=== PATIENT | male | born 1990 | race American Indian/Alaskan Native ===

== ENCOUNTER 2018-02-07 21:33 | Emergency (ER) | payer SELFPAY ==
[2018-02-07 22:07] VITALS: TEMP 98.2
--- NOTE | 2018-02-08 01:24 | ED PDOC ---
Upper Extremity Pain/Injury Chief Complaint (Provider): Right Finger Pain History Per: Patient History/Exam Limitations: no limitations Onset/Duration Of Symptoms: Days (x3) Current Symptoms Are (Timing): Still Present Additional Complaint(s): 27 year old male presents to ED with complaints of right 2nd digit pain x3 days and has no past medical history. Notes slamming his finger in a metal fridge x1 week ago and noticed increased swelling and pain to the area. PCP: None <Mehul Xie - Last Filed: 02/08/18 01:50> <Brittany Su - Last Filed: 02/08/18 02:10> Time Seen by Provider: 02/08/18 00:11 Chief Complaint (Nursing): Finger,Hand,&Wrist Past Medical History Reviewed: Historical Data, Nursing Documentation, Vital Signs Vital Signs: Last Vital Signs Temp 98.2 F 02/07/18 22:04 Pulse 71 02/07/18 22:04 Resp 02/07/18 22:04 BP 133/85 02/07/18 22:04 Pulse Ox 98 02/07/18 22:04 - Medical History PMH: No Chronic Diseases - Family History Family History: States: Unknown Family Hx <Mehul Xie - Last Filed: 02/08/18 01:50> Vital Signs: Last Vital Signs Temp 98.2 F 02/07/18 22:04 Pulse 71 02/07/18 22:04 Resp 02/07/18 22:04 BP 133/85 02/07/18 22:04 Pulse Ox 98 02/08/18 01:50 <Brittany Su - Last Filed: 02/08/18 02:10> - Allergies Allergies/Adverse Reactions: Allergies Allergy/AdvReac Type Severity Reaction Status Date / Time No Known Allergies Allergy Verified 02/07/18 22:07 Review of Systems ROS Statement: Except As Marked, All Systems Reviewed And Found Negative Musculoskeletal: Positive for: Hand Pain (Right 2nd digit pain and swelling) <Mehul Xie - Last Filed: 02/08/18 01:50> Physical Exam - Reviewed Nursing Documentation Reviewed: Yes Vital Signs Reviewed: Yes - Physical Exam Appears: Positive for: Non-toxic, No Acute Distress Extremity: Positive for: Normal ROM, Swelling (Swelling to distal tip of right 2nd digit. No skin breakdown.), Other (Evidence of paronychia to the affected area). Negative for: Deformity Neurologic/Psych: Positive for: Alert, Oriented. Negative for: Motor/Sensory Deficits (sensations intact) <Mehul Xie - Last Filed: 02/08/18 01:50> - ECG O2 Sat by Pulse Oximetry: 98 (RA) Pulse Ox Interpretation: Normal <Mehul Xie - Last Filed: 02/08/18 01:50> Medical Decision Making Medical Decision Makin Initial impression: paronychia Initial plan: * XR HAND RIGHT 2ND DIGIT 0130 XR: no fracture. Scribe Attestation: Documented by Marylou Pope acting as a scribe for Mehul Xie MD. Scribe Attestation: All medical record entries made by the Scribe were at my direction and personally dictated by me. I have reviewed the chart and agree that the record accurately reflects my personal performance of the history, physical exam, medical decision making, and the department course for this patient. I have also personally directed, reviewed, and agree with the discharge instructions and disposition. <Mehul Xie - Last Filed: 02/08/18 01:50> Disposition <Mehul Xie - Last Filed: 02/08/18 01:50> - Patient ED Disposition Is Patient to be Admitted: No - Disposition Disposition: Routine/Home Disposition Time: 02:07 <Brittany Su - Last Filed: 02/08/18 02:10> - Clinical Impression Clinical Impression: Paronychia - Disposition Condition: FAIR Instructions: Paronychia (DC) Forms: [facility] (French), [facility] ED School/Work Excuse Procedure - Procedure and Findings -: VERBAL CONSENT PRIOR TO PROCEDURE WOUND PREPPED WITH ALCOHOL AND SMALL INCISION MADE WITH 11 BLADE WITH MODERATE PRULULENT DISCHARGE EXPRESSED. BACITRACIN OINTMENT AND DRESSING APPLIED. <Brittany Su - Last Filed: 02/08/18 02:10>
[2018-02-08 08:00] VITALS: BP 148/94; PULSE 74; RESP 18; O2SAT 100
--- NOTE | 2018-02-08 09:23 | RAD ---
PROCEDURE: Right Index finger radiographs. HISTORY: r/o fracture, injury 5 days ago COMPARISON: None. TECHNIQUE: AP radiograph of the right hand, as well as spot oblique and lateral images of index finger were obtained. FINDINGS: RIGHT INDEX FINGER: Normal right index finger, without fracture or focal lesion. Remainder of the right hand (as seen on the AP view) grossly intact. JOINTS: Normal. SOFT TISSUES: Normal. OTHER FINDINGS: None. IMPRESSION: Normal right index finger radiographs.
== END 2018-02-08 02:20 | disposition home or self-care (01) ==
LOC: H.ER 21:33
DX: L03.011 Cellulitis of right finger (principal)